=== PATIENT | male | born 1955 | race Caucasian/White ===

== ENCOUNTER 2017-05-19 14:23 | Emergency (ER) | payer OTHER ==
[2017-05-19 14:58] LABS: BASOPHIL 0.9 % (0-2); EOSINOPHIL 0.8 % (0-5); HCT 34.4 % (42.0-52.0); HGB 12.7 g/dl (13.2-18.0); LYMPHOCYTE 18.4 % (15-48); MCH 34.3 pg (25.0-31.0); MCHC 36.9 g/dL (32.0-36.0); MONOCYTE 7.7 % (0-12); MPV 8.5 fL (6.0-9.5); NEUTROPHIL 72.2 % (41-80); PLT 310 K/uL (150-400); WBC 8.4 K/uL (4.0-10.5)
[2017-05-19 15:06] LABS: LACTIC ACID 7.6 mmol/L (0.5-2.2)
[2017-05-19 15:08] LABS: ALBUMIN 3.7 g/dL (3.4-4.8); BILIRUBIN - TOTAL 0.2 mg/dL (0.1-1.0); CREATININE 0.9 mg/dL (0.7-1.2); GLOBULIN (CALCULATION) 2.4 g/dL (2.2-4.2); TOTAL PROTEIN 6.1 g/dL (6.4-8.3)
[2017-05-19 15:24] LABS: BILIRUBIN NEGATIVE (NEGATIVE); BLOOD 1+ Ery/uL (NEGATIVE); CLARITY CLEAR (CLEAR); COLOR YELLOW (YELLOW); GLUCOSE (U) NORMAL (NORMAL); KETONE (U) TRACE mg/dL (NEGATIVE); LEUKOCYTES NEGATIVE Leu/uL (NEGATIVE); NITRITE NEGATIVE (NEGATIVE); PROTEIN 1+ mg/dL (NEGATIVE); UROBILINOGEN 0.2 mg/dL (0.2-1.0)
[2017-05-19 15:31] LABS: BACTERIA TRACE
[2017-05-19 15:39] LABS: AMPHETAMINES NEGATIVE (NEGATIVE); BARBITURATES NEGATIVE (NEGATIVE); BENZODIAZEPINES NEGATIVE (NEGATIVE); COCAINE NEGATIVE (NEGATIVE); MARIJUANA (THC) POSITIVE (NEGATIVE); METHADONE NEGATIVE (NEGATIVE); TRICYCLIC ANTIDEPRESSANT NEGATIVE (NEGATIVE)
[2017-05-19 15:48] LABS: C-REACTIVE PROTEIN 0.3 mg/dL (0.00-0.50)
[2017-05-19 16:13] LABS: LYMPHOCYTE(M) 20 % (15-48); NEUTROPHILS(M) 74 % (41-80)
[2017-05-19 16:14] LABS: MONOCYTE(M) 6 % (0-12); PLATELET ESTIMATE NORMAL; PLATELET MORPHOLOGY NORMAL
== END 2017-05-19 18:05 | disposition other institution (70) ==
LOC: FER 14:23
PROVIDERS: Internal Medicine
DX: S12.400A Unspecified displaced fracture of fifth cervical vertebra, initial encounter for closed fracture (principal); S12.500A Unspecified displaced fracture of sixth cervical vertebra, initial encounter for closed fracture; S12.600A Unspecified displaced fracture of seventh cervical vertebra, initial encounter for closed fracture; S22.41XA Multiple fractures of ribs, right side, initial encounter for closed fracture; F17.200 Nicotine dependence, unspecified, uncomplicated; V48.5XXA Car driver injured in noncollision transport accident in traffic accident, initial encounter; Y92.410 Unspecified street and highway as the place of occurrence of the external cause
CPT/HCPCS: 36415; 70450; 71010; 71275; 72125; 72170; 72193; 80053; 80305; 81001; 82550; 83605; 84484; 85651; 86140; 90471; 90715; 93005; G0480

== ENCOUNTER 2021-05-27 19:36 | Emergency (ER) | payer MEDICARE ==
[2021-05-27 20:18] LABS: BASOPHIL 0.4 % (0-2); EOSINOPHIL 0.1 % (0-7); HCT 34.5 % (42.0-52.0); HGB 12.2 g/dl (13.2-18.0); LYMPHOCYTE 5.5 % (15-48); MCH 35.2 pg (25.0-31.0); MCHC 35.4 g/dL (32.0-36.0); MCV 99.4 fL (78.0-100.0); MONOCYTE 10.3 % (0-12); MPV 9.4 fL (6.0-9.5); NEUTROPHIL 82.6 % (41-80); NRBC 0; PLT 274 K/uL (150-400); RBC 3.47 M/uL (4.70-6.00); RDW 14.7 % (11.5-14.0)
[2021-05-27 20:28] LABS: ALBUMIN 1.9 g/dL (3.4-5.0); BILIRUBIN - TOTAL 0.8 mg/dL (0.2-1.0); BUN/CREAT RATIO (CALC) 34.5 RATIO; CREATININE 0.55 mg/dL (0.67-1.17); GLOBULIN (CALCULATION) 5.2 g/dL; POTASSIUM 3.2 mmol/L (3.5-5.1); TOTAL PROTEIN 7.1 g/dL (6.4-8.2)
[2021-05-27 20:51] LABS: LACTIC ACID 2.1 mmol/L (0.4-1.9)
[2021-05-28] MEDS ORDERED: KEFLEX250 MG PO (09:35)
[2021-05-28] MEDS ORDERED: VIBRAMYCIN100 MG PO (09:35)
[2021-05-28] MEDS ORDERED: VENTOLIN HFA18 GM INH (09:43)
[2021-05-28] MEDS ORDERED: MEDROL 4MG DOSEP4 MG PO (09:43)
== END 2021-05-28 10:25 | disposition left against medical advice (07) ==
LOC: FER 19:36
PROVIDERS: Emergency Medicine
DX: J18.9 Pneumonia, unspecified organism (principal); J96.01 Acute respiratory failure with hypoxia; J98.11 Atelectasis; J90 Pleural effusion, not elsewhere classified; R00.0 Tachycardia, unspecified; J44.9 Chronic obstructive pulmonary disease, unspecified; I10 Essential (primary) hypertension; F17.200 Nicotine dependence, unspecified, uncomplicated; Z20.822 Contact with and (suspected) exposure to COVID-19
CPT/HCPCS: 36415; 36600; 71045; 71275; 72125; 80053; 82803; 83605; 84484; 85025; 87040; 93005; 94640; 94664; J1170; J1885; J2543; J2930; J3370; J7030; J7050; J7120; Q9967; U0002

== ENCOUNTER 2021-05-30 19:18 | Emergency (ER) | payer MEDICARE ==
[~2021-05-30 19:18] MED LIST: KEFLEX250 MG PO; MEDROL 4MG DOSEP4 MG PO; VENTOLIN HFA18 GM INH; VIBRAMYCIN100 MG PO
[2021-05-30 21:10] LABS: BASOPHIL 0.2 % (0-2); EOSINOPHIL 0 % (0-7); HCT 35.8 % (42.0-52.0); HGB 12.5 g/dl (13.2-18.0); LYMPHOCYTE 4.3 % (15-48); MCH 35.1 pg (25.0-31.0); MCHC 34.9 g/dL (32.0-36.0); MCV 100.6 fL (78.0-100.0); MONOCYTE 6.2 % (0-12); MPV 9.3 fL (6.0-9.5); NEUTROPHIL 87.6 % (41-80); NRBC 0; PLT 285 K/uL (150-400); RBC 3.56 M/uL (4.70-6.00); RDW 14.5 % (11.5-14.0); WBC 13.7 K/uL (4.0-10.5)
[2021-05-30 21:29] LABS: ALBUMIN 2.2 g/dL (3.4-5.0); BILIRUBIN - TOTAL 0.4 mg/dL (0.2-1.0); BUN/CREAT RATIO (CALC) 22.6 RATIO; CREATININE 0.53 mg/dL (0.67-1.17); GLOBULIN (CALCULATION) 4.3 g/dL; POTASSIUM 3.2 mmol/L (3.5-5.1); TOTAL PROTEIN 6.5 g/dL (6.4-8.2)
[2021-05-30 21:36] LABS: PRO-BNP 1489 pg/mL (<125)
[2021-05-30 21:37] LABS: LACTIC ACID 2.3 mmol/L (0.4-1.9)
[2021-05-31] MEDS ORDERED: NEBULIZER UNIT NEB (00:40)
[2021-05-31] MEDS ORDERED: DUONEB 2.5-0.5M1 AMP INH (00:40)
[2021-05-31] MEDS ORDERED: LEVAQUIN750 MG PO (00:40)
[2021-05-31] MEDS ORDERED: PERCOCET 5-3251 EACH PO (00:40)
[2021-05-31] MEDS ORDERED: PREDNISONE 20MG20 MG PO (00:40)
== END 2021-05-31 01:07 | disposition home or self-care (01) ==
LOC: FER 19:18
PROVIDERS: Emergency Medicine Emergency Medical Services
DX: G89.29 Other chronic pain (principal); M54.9 Dorsalgia, unspecified; J98.11 Atelectasis; E87.6 Hypokalemia; I10 Essential (primary) hypertension; J44.9 Chronic obstructive pulmonary disease, unspecified; F17.210 Nicotine dependence, cigarettes, uncomplicated
CPT/HCPCS: 36415; 36600; 71045; 80053; 82803; 83605; 83880; 84145; 84484; 85025; 87040; 93005; 94640; 94664; J1170; J2405; J2543

== ENCOUNTER 2021-06-19 01:42 | Emergency (ER) | payer MEDICARE ==
[~2021-06-19 01:42] MED LIST changes: +DUONEB 2.5-0.5M1 AMP INH; +LEVAQUIN750 MG PO; +NEBULIZER UNIT NEB; +PERCOCET 5-3251 EACH PO; +PREDNISONE 20MG20 MG PO
== END 2021-06-19 07:15 | disposition home or self-care (01) ==
LOC: FER 01:42
DX: G89.29 Other chronic pain (principal); M54.2 Cervicalgia; M54.9 Dorsalgia, unspecified; I10 Essential (primary) hypertension; J44.9 Chronic obstructive pulmonary disease, unspecified; F17.200 Nicotine dependence, unspecified, uncomplicated
CPT/HCPCS: 94640; 94664; 99283

== ENCOUNTER 2021-07-13 18:27 | Emergency (ER) | payer MEDICARE ==
[2021-07-13 20:25] LABS: BASOPHIL 1.5 % (0-2); EOSINOPHIL 1.7 % (0-7); HCT 35.8 % (42.0-52.0); HGB 11.5 g/dl (13.2-18.0); LYMPHOCYTE 33.1 % (15-48); MCH 34.5 pg (25.0-31.0); MCHC 32.1 g/dL (32.0-36.0); MCV 107.5 fL (78.0-100.0); MONOCYTE 9.9 % (0-12); NEUTROPHIL 52.8 % (41-80); NRBC 0; PLT 391 K/uL (150-400); RBC 3.33 M/uL (4.70-6.00); RDW 15.6 % (11.5-14.0); WBC 8.1 K/uL (4.0-10.5)
[2021-07-13 20:42] LABS: ALBUMIN 3.7 g/dL (3.4-5.0); BILIRUBIN - TOTAL 0.2 mg/dL (0.2-1.0); BUN/CREAT RATIO (CALC) 14.9 RATIO; CREATININE 0.47 mg/dL (0.67-1.17); GLOBULIN (CALCULATION) 4.1 g/dL; POTASSIUM 3.6 mmol/L (3.5-5.1); TOTAL PROTEIN 7.8 g/dL (6.4-8.2)
== END 2021-07-14 00:35 | disposition home or self-care (01) ==
LOC: FER 18:27
PROVIDERS: Physician Assistant
DX: F32.A Depression, unspecified (principal); F10.129 Alcohol abuse with intoxication, unspecified; I10 Essential (primary) hypertension; J45.909 Unspecified asthma, uncomplicated; F17.210 Nicotine dependence, cigarettes, uncomplicated
CPT/HCPCS: 36415; 80053; 85025; 94640; 94664; 99284; G0480